=== PATIENT | male | born 1940 | race Caucasian/White ===

== ENCOUNTER 2017-11-04 11:52 | Inpatient (IN) | payer MEDICARE, OTHER ==
[2017-11-04 11:54] VITALS: BMI 28.3
[2017-11-04 13:19] LABS: BASO % 0.4 % (0.0-2.0); EOS # 0.1 K/uL (0.0-0.7); EOS % 2.1 % (0.0-4.0); HEMATOCRIT 43.5 % (35.0-51.0); LYMPH # 1.4 K/uL (1.0-4.3); LYMPH % 20.8 % (20.0-40.0); MEAN CELL VOLUME 88.8 fL (80.0-94.0); MEAN CORPUSCULAR HEMOGLOBIN 29.6 pg (27.0-31.0); MEAN CORPUSCULAR HGB CONC 33.4 g/dL (33.0-37.0); MEAN PLATELET VOLUME 7.3 fL (7.2-11.7); MONO # 0.6 K/uL (0.0-0.8); MONO % 8.8 % (0.0-10.0); RED CELL DISTRIBUTION WIDTH 13.9 % (11.5-14.5); WHITE BLOOD COUNT 6.9 K/uL (4.8-10.8)
[2017-11-04] MEDS ORDERED: Sodium Chloride 0.9% 500 ML IV ONE ×2 (13:19→13:30)
[2017-11-04 13:28] LABS: INR 1.1
[2017-11-04 13:32] LABS: ALKALINE PHOSPHATASE 68 U/L (38-126); ALT/SGPT 39 U/L (21-72); AST/SGOT 34 U/L (17-59); BILIRUBIN,TOTAL 0.6 mg/dL (0.2-1.3); BLOOD UREA NITROGEN 22 mg/dL (9-20); CALCIUM 8.5 mg/dl (8.6-10.4); CARBON DIOXIDE 29 mmol/L (22-30); CHLORIDE 105 mmol/L (98-107); GFR AFRICAN-AMERICAN > 60; GLUCOSE,RANDOM 101 mg/dL (75-110); POTASSIUM 4.9 mmol/L (3.6-5.2); SODIUM 141 mmol/L (132-148)
--- NOTE | 2017-11-04 14:03 | CT ---
PROCEDURE: CT HEAD WITHOUT CONTRAST. HISTORY: syncope COMPARISON: None available. TECHNIQUE: Axial computed tomography images were obtained through the head/brain without intravenous contrast. Radiation dose: Total exam DLP = 884.92 MGy-cm. This CT exam was performed using one or more of the following dose reduction techniques: Automated exposure control, adjustment of the mA and/or kV according to patient size, and/or use of iterative reconstruction technique. FINDINGS: BRAIN: Diffuse atrophy with prominence of the ventricles and sulci noted. No mass effect or edema. Dense intracranial atherosclerosis. Scattered periventricular and subcortical white matter hypodensities, which are nonspecific, but often seen with chronic microvascular ischemic disease. No acute intracranial hemorrhage identified. Minimal postoperative changes at the dura on the left.Please note that MRI with diffusion imaging is more sensitive in the detection of acute ischemic event. VENTRICLES: No hydrocephalus. CALVARIUM: Left parietal craniotomy. PARANASAL SINUSES: Unremarkable as visualized. No significant inflammatory changes. MASTOID AIR CELLS: Unremarkable as visualized. No inflammatory changes. OTHER FINDINGS: None. IMPRESSION: No acute intracranial pathology identified. Additional findings as above.
--- NOTE | 2017-11-04 14:19 | C.PDOC ---
History Of Present Illness 77 y/o male states he felt lightheaded while walking home this morning, had a syncopal episode lasting several seconds that was witnessed by bystander. Patient denies chest pain, SOB, or palpitations prior to the episode. Patient also c/o right lower tooth pain, was evaluated by a dentist for already. He denies headache, visual changes, extremity weakness, sensory changes, facial droop, slurred speech. Time Seen by Provider: 11/04/17 12:38 Chief Complaint (Nursing): Syncope History Per: Patient History/Exam Limitations: no limitations Onset/Duration Of Symptoms: Hrs Activity At Onset Of Symptoms: Walking Associated Symptoms Preceding Syncopal Episode: No Predromal Symptoms (Sudden Onset) Fall Associated With With Symptoms: No Past Medical History Reviewed: Historical Data, Nursing Documentation, Vital Signs Vital Signs: Last Vital Signs Temp 98.0 F 11/07/17 09:36 Pulse 53 L 11/07/17 12:23 Resp 20 11/07/17 09:36 BP 129/78 11/07/17 09:36 Pulse Ox 99 11/07/17 09:36 - Medical History PMH: HTN - [facility] Procedures CLOSED ENDOSCOPIC BIOPSY OF LARGE INTESTINE (06/16/13) Family History: States: No Known Family Hx - Social History Hx Alcohol Use: No Hx Substance Use: No Review Of Systems Except As Marked, All Systems Reviewed And Found Negative. Constitutional: Negative for: Fever, Chills ENT: Positive for: Mouth Pain (dental pain) Cardiovascular: Negative for: Chest Pain Respiratory: Negative for: Cough, Shortness of Breath Gastrointestinal: Negative for: Nausea, Vomiting Skin: Negative for: Rash Neurological: Positive for: Other (syncope). Negative for: Weakness, Numbness Physical Exam - Physical Exam Appears: Well, Non-toxic, No Acute Distress Skin: Normal Color, Warm, Dry Head: Atraumatic, Normacephalic Eye(s): bilateral: Normal Inspection, PERRL, EOMI Oral Mucosa: Moist Teeth: Other (poor dentition) Cardiovascular: Rhythm Regular Respiratory: Normal Breath Sounds, No Rales, No Rhonchi, No Wheezing Gastrointestinal/Abdominal: Normal Exam, Bowel Sounds, Soft, No Tenderness Extremity: Normal ROM Neurological/Psych: Oriented x3, Normal Speech, Normal Cognition ED Course And Treatment - Laboratory Results Result Diagrams: 11/04/17 13:11/04/17 13:08 ECG: Interpreted By Me ECG Rhythm: Sinus Rhythm Interpretation Of ECG: normal axis, occasional PVC's, RBBB, Q waves in II, III, and aVF. No acute ST changes. Rate From EC O2 Sat by Pulse Oximetry: 98 (RA) Pulse Ox Interpretation: Normal Progress Note: Blood work, CT head, EKG ordered and reviewed. 4:00pm- After being admitted, patient now states he no longer wants to stay and wants to go home. Explained to patient that he will need to sign out against my medical advice if he wants to leave. Patient understands that by doing so, he risks worsening of current condition or possibly even . He understands the risk, and has signed out against my medical advice. 4:15PM- Patient now states he wants to stay and have further workup. Will proceed with admission. - Physician Consult Information Physician Contacted: Venkata Brower Outcome Of Conversation: Discussed patient with Dr. Danuta Brower, agrees with telemetry admission for syncope. Disposition - Disposition Disposition: HOSPITALIZED Disposition Time: 14:48 Condition: STABLE - Clinical Impression Clinical Impression: Syncope - Scribe Statement The provider has reviewed the documentation as recorded by the Scribe SM All medical record entries made by the Scribe were at my direction and personally dictated by me. I have reviewed the chart and agree that the record accurately reflects my personal performance of the history, physical exam, medical decision making, and the department course for this patient. I have also personally directed, reviewed, and agree with the discharge instructions and disposition. Decision To Admit - Pt Status Changed To: Hospital Disposition Of: Inpatient - Admit Certification Admit to Inpatient:: After my assessment, the patient will require hospitalization for at least two midnights. This is because of the severity of symptoms shown, intensity of services needed, and/or the medical risk in this patient being treated as an outpatient. - InPatient: Physician Admission Certification: I certify that this patient requires 2 or more midnights of care for the following reason:: see notes - . Bed Request Type: Telemetry Admitting Physician: Venkata Brower Patient Diagnosis: Syncope, Left against medical advice
[2017-11-04 17:22] VITALS: RESP 20
--- NOTE | 2017-11-04 19:49 | CP.PCM.HP ---
Past Patient History - Past Social History Smoking Status: Never Smoked - CARDIAC Hx Hypertension: Yes - PULMONARY Hx Respiratory Disorders: No - NEUROLOGICAL Hx Neurological Disorder: No - HEENT Hx HEENT Problems: No - RENAL Hx Chronic Kidney Disease: No - ENDOCRINE/METABOLIC Hx Endocrine Disorders: No - HEMATOLOGICAL/ONCOLOGICAL Hx Blood Disorders: No - INTEGUMENTARY Hx Dermatological Problems: No - MUSCULOSKELETAL/RHEUMATOLOGICAL Hx Musculoskeletal Disorders: No - GASTROINTESTINAL Hx Gastrointestinal Disorders: No - GENITOURINARY/GYNECOLOGICAL Hx Genitourinary Disorders: No - PSYCHIATRIC Hx Substance Use: No - SURGICAL HISTORY Hx Surgeries: No - ANESTHESIA Hx Anesthesia: No Hx Anesthesia Reactions: No Hx Malignant Hyperthermia: No Has any member of the family had a problem w/ anesthesia?: No Meds Allergies/Adverse Reactions: Allergies Allergy/AdvReac Type Severity Reaction Status Date / Time No Known Allergies Allergy Verified 06/16/13 08:17 Physical Exam - Constitutional Appears: Well - Head Exam Head Exam: ATRAUMATIC, NORMAL INSPECTION, NORMOCEPHALIC - Eye Exam Eye Exam: EOMI, Normal appearance, PERRL Pupil Exam: NORMAL ACCOMODATION, PERRL - ENT Exam ENT Exam: Mucous Membranes Moist, Normal Exam - Neck Exam Neck exam: Positive for: Normal Inspection - Respiratory Exam Respiratory Exam: Decreased Breath Sounds - Cardiovascular Exam Cardiovascular Exam: REGULAR RHYTHM, +S1, +S2 - GI/Abdominal Exam GI & Abdominal Exam: Diminished Bowel Sounds, Soft - Rectal Exam Rectal Exam: Deferred Results - Vital Signs Recent Vital Signs: Last Vital Signs Temp 98.0 F 11/04/17 16:45 Pulse 59 L 11/04/17 16:45 Resp 20 11/04/17 16:45 BP 144/85 11/04/17 16:45 Pulse Ox 99 11/04/17 16:45 - Labs Result Diagrams: 11/04/17 13:08 11/04/17 13:08 Labs: Laboratory Results - last 24 hr 11/04/17 11/04/17 11/04/17 12:45 13:08 13:08 WBC 6.9 RBC 4.90 Hgb 14.5 Hct 43.5 MCV 88.8 MCH 29.6 MCHC 33.4 RDW 13.9 Plt Count 192 MPV 7.3 Neut % (Auto) 67.9 Lymph % (Auto) 20.8 [place] % (Auto) 8.8 Eos % (Auto) 2.1 Baso % (Auto) 0.4 Neut # 4.7 Lymph # 1.4 [place] # 0.6 Eos # 0.1 Baso # 0.0 PT INR APTT Sodium 141 Potassium 4.9 Chloride 105 Carbon Dioxide 29 Anion Gap 11 BUN 22 H Creatinine 1.0 Est GFR ( Amer) > 60 Est GFR (Non-Af Amer) > 60 POC Glucose (mg/dL) 102 Random Glucose 101 Calcium 8.5 L Total Bilirubin 0.6 AST 34 ALT 39 Alkaline Phosphatase 68 Total Creatine Kinase 165 CK-MB (Mass) 1.72 Troponin I < 0.0120 Total Protein 8.0 Albumin 4.0 Globulin 4.0 H Albumin/Globulin Ratio 1.0 11/04/17 13:08 WBC RBC Hgb Hct MCV MCH MCHC RDW Plt Count MPV Neut % (Auto) Lymph % (Auto) [place] % (Auto) Eos % (Auto) Baso % (Auto) Neut # Lymph # [place] # Eos # Baso # PT 12.0 INR 1.1 APTT 30 Sodium Potassium Chloride Carbon Dioxide Anion Gap BUN Creatinine Est GFR ( Amer) Est GFR (Non-Af Amer) POC Glucose (mg/dL) Random Glucose Calcium Total Bilirubin AST ALT Alkaline Phosphatase Total Creatine Kinase CK-MB (Mass) Troponin I Total Protein Albumin Globulin Albumin/Globulin Ratio
--- NOTE | 2017-11-04 21:27 | CP.PCM.CON ---
History of Present Illness - History of Present Illness History of Present Illness: Patient admitted for Syncope Will Check ECHO, Carotids and Trops Past Patient History - Past Social History Smoking Status: Never Smoked - CARDIAC Hx Hypertension: Yes - PULMONARY Hx Respiratory Disorders: No - NEUROLOGICAL Hx Neurological Disorder: No - HEENT Hx HEENT Problems: No - RENAL Hx Chronic Kidney Disease: No - ENDOCRINE/METABOLIC Hx Endocrine Disorders: No - HEMATOLOGICAL/ONCOLOGICAL Hx Blood Disorders: No - INTEGUMENTARY Hx Dermatological Problems: No - MUSCULOSKELETAL/RHEUMATOLOGICAL Hx Musculoskeletal Disorders: No - GASTROINTESTINAL Hx Gastrointestinal Disorders: No - GENITOURINARY/GYNECOLOGICAL Hx Genitourinary Disorders: No - PSYCHIATRIC Hx Substance Use: No - SURGICAL HISTORY Hx Surgeries: No - ANESTHESIA Hx Anesthesia: No Hx Anesthesia Reactions: No Hx Malignant Hyperthermia: No Has any member of the family had a problem w/ anesthesia?: No Meds Allergies/Adverse Reactions: Allergies Allergy/AdvReac Type Severity Reaction Status Date / Time No Known Allergies Allergy Verified 06/16/13 08:17 - Medications Medications: Current Medications Aspirin (Aspirin) 325 mg PO DAILY [facility] Clopidogrel Bisulfate (Plavix) 75 mg PO DAILY [facility] Enoxaparin Sodium (Lovenox) 40 mg SC DAILY [facility] Famotidine (Pepcid) 20 mg PO DAILY [facility] Metoprolol Tartrate (Lopressor) 100 mg PO DAILY [facility] Naproxen (Anaprox Ds) 550 mg PO DAILY [facility] Pneumococcal Polyvalent Vaccine (Pneumovax 23 Vaccine) 0.5 ml IM .ONCE ONE Stop: 11/05/17 10:01 Results - Vital Signs Recent Vital Signs: Last Vital Signs Temp 98.0 F 11/04/17 16:45 Pulse 59 L 11/04/17 16:45 Resp 20 11/04/17 16:45 BP 144/85 11/04/17 16:45 Pulse Ox 99 11/04/17 16:45 - Labs Result Diagrams: 11/04/17 13:08 11/04/17 13:08 Labs: Laboratory Results - last 24 hr 11/04/17 11/04/17 11/04/17 12:45 13:08 13:08 WBC 6.9 RBC 4.90 Hgb 14.5 Hct 43.5 MCV 88.8 MCH 29.6 MCHC 33.4 RDW 13.9 Plt Count 192 MPV 7.3 Neut % (Auto) 67.9 Lymph % (Auto) 20.8 [place] % (Auto) 8.8 Eos % (Auto) 2.1 Baso % (Auto) 0.4 Neut # 4.7 Lymph # 1.4 [place] # 0.6 Eos # 0.1 Baso # 0.0 PT INR APTT Sodium 141 Potassium 4.9 Chloride 105 Carbon Dioxide 29 Anion Gap 11 BUN 22 H Creatinine 1.0 Est GFR ( Amer) > 60 Est GFR (Non-Af Amer) > 60 POC Glucose (mg/dL) 102 Random Glucose 101 Calcium 8.5 L Total Bilirubin 0.6 AST 34 ALT 39 Alkaline Phosphatase 68 Total Creatine Kinase 165 CK-MB (Mass) 1.72 Troponin I < 0.0120 Total Protein 8.0 Albumin 4.0 Globulin 4.0 H Albumin/Globulin Ratio 1.0 11/04/17 11/04/17 13:08 20:41 WBC RBC Hgb Hct MCV MCH MCHC RDW Plt Count MPV Neut % (Auto) Lymph % (Auto) [place] % (Auto) Eos % (Auto) Baso % (Auto) Neut # Lymph # [place] # Eos # Baso # PT 12.0 INR 1.1 APTT 30 Sodium Potassium Chloride Carbon Dioxide Anion Gap BUN Creatinine Est GFR ( Amer) Est GFR (Non-Af Amer) POC Glucose (mg/dL) Random Glucose Calcium Total Bilirubin AST ALT Alkaline Phosphatase Total Creatine Kinase 161 CK-MB (Mass) 1.93 Troponin I < 0.0120 Total Protein Albumin Globulin Albumin/Globulin Ratio
[2017-11-05] MEDS: Naproxen 550 mg Tab PO SCH (09:35)
[2017-11-05] MEDS: Enoxaparin 40 mg Syringe SC SCH (09:36)
[2017-11-05] MEDS ORDERED: Pneumococcal 23-Valent Vaccine IM ONE (10:00)
--- NOTE | 2017-11-05 14:01 | VASCLAB ---
PROCEDURE: HISTORY: Syncope COMPARISON: None available. TECHNIQUE: Grayscale and duplex Doppler evaluation of the cervical carotid and vertebral arteries were performed. The common carotid, carotid bifurcations and cervical Internal Carotid Artery (ICA) and proximal External Carotid Artery (ECA) were evaluated. The vertebral arteries were evaluated for gross patency and flow direction. Report prepared by MIGUEL Rowley FINDINGS: RIGHT CAROTID ARTERIES: 1. Common Carotid Artery: Minimal homogeneous plaque formation of the right common carotid artery. Maximum Peak Systolic velocity: 75 cm/sec: End-diastolic velocity 18 cm/sec. 2. Carotid Bifurcation: plaque formation. Maximum Peak Systolic velocity: 40 cm/sec: End-diastolic velocity 0 cm/sec. 3. Internal Carotid Artery: Plaque description: Homogeneous 3.1. Proximal Segment: Peak systolic velocity 83 cm/sec: End-diastolic velocity 28 cm/sec - % stenosis 0-15% 3.2. Middle Segment: Peak systolic velocity 104 cm/sec: End-diastolic velocity 33 cm/sec - % stenosis 0-15% 3.3. Distal Segment: Peak systolic velocity 85 cm/sec: End-diastolic velocity 22 cm/sec - % stenosis 0-15% 4. External Carotid Artery: No significant focal plaque formation. Peak systolic velocity 68 cm/sec 5. ICA/CCA Ratio: 2.2 LEFT CAROTID ARTERIES: 1. Common Carotid Artery: Minimal homogeneous plaque formation of the left common carotid artery. Maximum Peak Systolic velocity: 65 cm/sec: End-diastolic velocity 16 cm/sec. 2. Carotid Bifurcation: plaque formation. Maximum Peak Systolic velocity: 29 cm/sec: End-diastolic velocity 8 cm/sec. 3. Internal Carotid Artery: Plaque description: Homogeneous 3.1. Proximal Segment: Peak systolic velocity 59 cm/sec: End-diastolic velocity 19 cm/sec - % stenosis 0-15% 3.2. Middle Segment: Peak systolic velocity 46 cm/sec: End-diastolic velocity 16 cm/sec - % stenosis 0-15% 3.3. Distal Segment: Peak systolic velocity 50 cm/sec: End-diastolic velocity 13 cm/sec - % stenosis 0-15% 4. External Carotid Artery: No significant focal plaque formation. Peak systolic velocity 57 cm/sec 5. ICA/CCA Ratio: 1.1 VERTEBRAL ARTERIES: 1. Right Vertebral Artery: The right vertebral artery flow direction is antegrade. 2. Left Vertebral Artery: The left vertebral artery flow direction is antegrade. OTHER FINDINGS: 1. Right Brachial Blood pressure: 120 mmHg. 2. Left Brachial Blood pressure: 115 mmHg. IMPRESSION: RIGHT: Duplex scan does not suggest hemodynamically significant stenosis of the right extracranial carotid arteries. LEFT: Duplex scan does not suggest hemodynamically significant stenosis of the left extracranial carotid arteries.
--- NOTE | 2017-11-05 18:42 | CP.PCM.PN ---
Subjective - Date & Time of Evaluation Date of Evaluation: 11/05/17 Time of Evaluation: 15:00 - Subjective Subjective: clinically same Objective - Vital Signs/Intake and Output Vital Signs (last 24 hours): Temp Pulse Resp BP Pulse Ox 97.7 F 62 20 111/64 96 11/05/17 15:20 11/05/17 15:20 11/05/17 15:20 11/05/17 15:20 11/05/17 15:20 Intake and Output: 11/05/17 11/05/17 06:59 18:59 Intake Total 120 400 Balance 120 400 - Medications Medications: Current Medications Aspirin (Aspirin) 325 mg PO DAILY [facility] Last Admin: 11/05/17 09:35 Dose: 325 mg Clopidogrel Bisulfate (Plavix) 75 mg PO DAILY [facility] Last Admin: 11/05/17 09:35 Dose: 75 mg Enoxaparin Sodium (Lovenox) 40 mg SC DAILY [facility] Last Admin: 11/05/17 09:36 Dose: 40 mg Famotidine (Pepcid) 20 mg PO DAILY [facility] Last Admin: 11/05/17 09:35 Dose: 20 mg Metoprolol Tartrate (Lopressor) 100 mg PO DAILY [facility] Last Admin: 11/05/17 09:35 Dose: 100 mg Naproxen (Anaprox Ds) 550 mg PO DAILY [facility] Last Admin: 11/05/17 09:35 Dose: 550 mg - Labs Labs: 11/04/17 13:08 11/04/17 13:08 PT 12.0 SECONDS (9.7-12.2) 11/04/17 13:08 INR 1.1 11/04/17 13:08 APTT 30 SECONDS (21-34) 11/04/17 13:08 - Constitutional Appears: Well - Head Exam Head Exam: ATRAUMATIC, NORMAL INSPECTION, NORMOCEPHALIC - Eye Exam Eye Exam: EOMI, Normal appearance, PERRL Pupil Exam: NORMAL ACCOMODATION, PERRL - ENT Exam ENT Exam: Mucous Membranes Moist, Normal Exam - Neck Exam Neck Exam: Full ROM, Normal Inspection. absent: Lymphadenopathy - Respiratory Exam Respiratory Exam: Decreased Breath Sounds - Cardiovascular Exam Cardiovascular Exam: REGULAR RHYTHM, +S1, +S2 - GI/Abdominal Exam GI & Abdominal Exam: Soft, Diminished Bowel Sounds - Rectal Exam Rectal Exam: Deferred
--- NOTE | 2017-11-05 23:52 | CON ---
DATE: HISTORY OF PRESENT ILLNESS: This is a 77-year-old male with past medical history of hypertension and patient came to the hospital because he felt lightheaded while walking in the house yesterday and had a syncopal episode for several seconds. No chest pain, no shortness of breath, and also complaining of a right lower throat pain and called to evaluate to the patient. PAST MEDICAL HISTORY: Hypertension. FAMILY HISTORY: None significant. REVIEW OF SYSTEMS: Ten-point review of systems was negative except passing out spell. PHYSICAL EXAMINATION: VITAL SIGNS: Blood pressure 149/75. NEUROLOGIC: Alert, awake, oriented x3. No aphasia. Cranial nerves II through XII were tested. Pupils reactive. EOMs intact. Visual mai full. No facial asymmetry. Tongue midline. Motor examination, moves all the extremities equally. Tone normal. Deep tendon reflexes 1+. Both plantars are downgoing. Sensory appears intact. Cerebellar and gait deferred. LABORATORY DATA: EKG: Normal sinus rhythm. WBC 6.9, hemoglobin 14.5, hematocrit 43.5, platelet 192. Sodium 141, potassium 4.9, chloride 105, CO2 of 29, glucose 101, BUN 22, creatinine 1. IMPRESSION: Syncope and workup in progress. CAT scan of the head was negative. Carotid Doppler ultrasound is pending. Continue present management. We will follow up. Carl Inman MD
[2017-11-06] MEDS: Naproxen 550 mg Tab PO SCH (10:01)
[2017-11-06] MEDS: Enoxaparin 40 mg Syringe SC SCH (10:02)
[2017-11-06] MEDS ORDERED: Iodixanol 320 MG/ML 100 ML BOTTLE IV ONE (16:31)
--- NOTE | 2017-11-06 17:49 | CT ---
PROCEDURE: CT Angiography Chest, Abdomen and Pelvis with and without intravenous contrast HISTORY: POSS DISSECTING AORTA COMPARISON: None. TECHNIQUE: Contiguous axial images of the chest, abdomen and pelvis were obtained in the phase of aortic enhancement. A noncontrast enhanced CT of the chest was also obtained to evaluate for possible intramural thrombus. Coronal and sagittal reformats were generated. IV dose administered: 100 mL Visipaque 320 Radiation dose: Total exam DLP = 1492.64 mGy-cm. This CT exam was performed using one or more of the following dose reduction techniques: Automated exposure control, adjustment of the mA and/or kV according to patient size, and/or use of iterative reconstruction technique. FINDINGS: CT ANGIOGRAPHY OF THE CHEST WITH & WITHOUT CONTRAST: AORTA (CHEST AND ABDOMEN): The thoracic and abdominal aorta are unremarkable, without aneurysm, dissection or rupture. No intramural thrombus identified in the thoracic aorta on the non-contrast ct of the chest. The celiac axis, superior mesenteric artery, inferior mesenteric artery and the renal arteries are widely patent. The pelvic arteries are unremarkable. LUNGS: Clear. No nodule, mass or consolidation. MEDIASTINUM: Unremarkable. Normal caliber aorta and pulmonary arterial trunk. No aortic dissection. Normal size heart. LYMPH NODES: Unremarkable. PLEURA: Unremarkable. No pneumothorax. No pleural fluid. BONES: Thoracolumbar dextroscoliosis. OTHER FINDINGS: None. CT ANGIOGRAPHY OF THE ABDOMEN AND PELVIS WITH CONTRAST: LIVER: Unremarkable. No gross lesion or ductal dilatation. GALLBLADDER AND BILE DUCTS: Unremarkable. PANCREAS: Unremarkable. No gross lesion or ductal dilatation. SPLEEN: Unremarkable. ADRENALS: Unremarkable. No mass. KIDNEYS AND URETERS: Unremarkable. No hydronephrosis. No solid mass. VASCULATURE: Unremarkable. No aortic aneurysm. STOMACH AND BOWEL: Scattered colonic diverticula. No bowel obstruction. APPENDIX: Normal appendix. PERITONEUM: Unremarkable. No free fluid. No free air. LYMPH NODES: Unremarkable. No enlarged lymph nodes. Bones No acute fracture. OTHER FINDINGS: None. IMPRESSION: No evidence of thoracic or abdominal aortic dissection. No evidence of aortic aneurysm. No significant abnormality identified.
--- NOTE | 2017-11-06 19:35 | CP.PCM.PN ---
Subjective - Date & Time of Evaluation Date of Evaluation: 11/06/17 Time of Evaluation: 12:20 - Subjective Subjective: clinically same Objective - Vital Signs/Intake and Output Vital Signs (last 24 hours): Temp Pulse Resp BP Pulse Ox 97.1 F L 58 L 20 150/80 98 11/06/17 15:50 11/06/17 16:05 11/06/17 15:50 11/06/17 15:50 11/06/17 15:50 Intake and Output: 11/06/17 11/07/17 18:59 06:59 Intake Total 700 Balance 700 - Medications Medications: Current Medications Aspirin (Aspirin) 325 mg PO DAILY [facility] Last Admin: 11/06/17 10:02 Dose: 325 mg Clopidogrel Bisulfate (Plavix) 75 mg PO DAILY [facility] Last Admin: 11/06/17 10:02 Dose: 75 mg Enoxaparin Sodium (Lovenox) 40 mg SC DAILY [facility] Last Admin: 11/06/17 10:02 Dose: 40 mg Famotidine (Pepcid) 20 mg PO DAILY [facility] Last Admin: 11/06/17 10:02 Dose: 20 mg Metoprolol Tartrate (Lopressor) 100 mg PO DAILY [facility] Last Admin: 11/06/17 10:02 Dose: 100 mg Naproxen (Anaprox Ds) 550 mg PO DAILY [facility] Last Admin: 11/06/17 10:01 Dose: 550 mg - Labs Labs: 11/04/17 13:08 11/04/17 13:08 PT 12.0 SECONDS (9.7-12.2) 11/04/17 13:08 INR 1.1 11/04/17 13:08 APTT 30 SECONDS (21-34) 11/04/17 13:08 - Constitutional Appears: Well - Head Exam Head Exam: ATRAUMATIC, NORMAL INSPECTION, NORMOCEPHALIC - Eye Exam Eye Exam: EOMI, Normal appearance, PERRL Pupil Exam: NORMAL ACCOMODATION, PERRL - ENT Exam ENT Exam: Mucous Membranes Moist, Normal Exam - Neck Exam Neck Exam: Full ROM, Normal Inspection. absent: Lymphadenopathy - Respiratory Exam Respiratory Exam: Decreased Breath Sounds - Cardiovascular Exam Cardiovascular Exam: REGULAR RHYTHM, +S1, +S2 - GI/Abdominal Exam GI & Abdominal Exam: Soft, Diminished Bowel Sounds - Rectal Exam Rectal Exam: Deferred
--- NOTE | 2017-11-06 20:04 | CP.PCM.PN ---
Subjective - Date & Time of Evaluation Date of Evaluation: 11/06/17 Time of Evaluation: 20:03 - Subjective Subjective: Patient cardiac w/u for syncopy has been negative so far Will continue to monitor Recommend neuro eval Objective - Vital Signs/Intake and Output Vital Signs (last 24 hours): Temp Pulse Resp BP Pulse Ox 97.1 F L 58 L 20 150/80 98 11/06/17 15:50 11/06/17 16:05 11/06/17 15:50 11/06/17 15:50 11/06/17 15:50 Intake and Output: 11/06/17 11/07/17 18:59 06:59 Intake Total 700 Balance 700 - Medications Medications: Current Medications Aspirin (Aspirin) 325 mg PO DAILY [facility] Last Admin: 11/06/17 10:02 Dose: 325 mg Clopidogrel Bisulfate (Plavix) 75 mg PO DAILY [facility] Last Admin: 11/06/17 10:02 Dose: 75 mg Enoxaparin Sodium (Lovenox) 40 mg SC DAILY [facility] Last Admin: 11/06/17 10:02 Dose: 40 mg Famotidine (Pepcid) 20 mg PO DAILY [facility] Last Admin: 11/06/17 10:02 Dose: 20 mg Metoprolol Tartrate (Lopressor) 100 mg PO DAILY [facility] Last Admin: 11/06/17 10:02 Dose: 100 mg Naproxen (Anaprox Ds) 550 mg PO DAILY [facility] Last Admin: 11/06/17 10:01 Dose: 550 mg - Labs Labs: 11/04/17 13:08 11/04/17 13:08 PT 12.0 SECONDS (9.7-12.2) 11/04/17 13:08 INR 1.1 11/04/17 13:08 APTT 30 SECONDS (21-34) 11/04/17 13:08
[2017-11-07] MEDS: Naproxen 550 mg Tab PO SCH (09:19)
[2017-11-07] MEDS: Enoxaparin 40 mg Syringe SC SCH (09:20)
[2017-11-07 09:37] VITALS: BP 129/78; TEMP 98
[2017-11-07 13:15] VITALS: PULSE 53
--- NOTE | 2017-11-07 15:57 | CP.PCM.PN ---
Subjective - Date & Time of Evaluation Date of Evaluation: 11/07/17 Time of Evaluation: 11:20 - Subjective Subjective: clinically same Objective - Vital Signs/Intake and Output Vital Signs (last 24 hours): Temp Pulse Resp BP Pulse Ox 98.0 F 53 L 20 129/78 99 11/07/17 09:36 11/07/17 12:23 11/07/17 09:36 11/07/17 09:36 11/07/17 09:36 Intake and Output: 11/07/17 11/07/17 06:59 18:59 Intake Total 600 Balance 600 - Medications Medications: Current Medications Aspirin (Aspirin) 325 mg PO DAILY [facility] Last Admin: 11/07/17 09:20 Dose: 325 mg Clopidogrel Bisulfate (Plavix) 75 mg PO DAILY [facility] Last Admin: 11/07/17 09:18 Dose: 75 mg Enoxaparin Sodium (Lovenox) 40 mg SC DAILY [facility] Last Admin: 11/07/17 09:20 Dose: 40 mg Famotidine (Pepcid) 20 mg PO DAILY [facility] Last Admin: 11/07/17 09:18 Dose: 20 mg Metoprolol Tartrate (Lopressor) 100 mg PO DAILY [facility] Last Admin: 11/07/17 09:19 Dose: 100 mg Naproxen (Anaprox Ds) 550 mg PO DAILY [facility] Last Admin: 11/07/17 09:19 Dose: 550 mg Tramadol HCl (Ultram) 50 mg PO TID PRN PRN Reason: Pain, severe (8-10) Last Admin: 11/07/17 13:35 Dose: 50 mg - Labs Labs: 11/04/17 13:08 11/04/17 13:08 PT 12.0 SECONDS (9.7-12.2) 11/04/17 13:08 INR 1.1 11/04/17 13:08 APTT 30 SECONDS (21-34) 11/04/17 13:08 - Constitutional Appears: Well - Head Exam Head Exam: ATRAUMATIC, NORMAL INSPECTION, NORMOCEPHALIC - Eye Exam Eye Exam: EOMI, Normal appearance, PERRL Pupil Exam: NORMAL ACCOMODATION, PERRL - ENT Exam ENT Exam: Mucous Membranes Moist, Normal Exam - Neck Exam Neck Exam: Full ROM, Normal Inspection. absent: Lymphadenopathy - Respiratory Exam Respiratory Exam: Decreased Breath Sounds - Cardiovascular Exam Cardiovascular Exam: REGULAR RHYTHM, +S1, +S2 - GI/Abdominal Exam GI & Abdominal Exam: Soft, Diminished Bowel Sounds - Rectal Exam Rectal Exam: Deferred
[2017-11-07 17:50] VITALS: O2SAT 98
--- NOTE | 2017-11-07 17:50 | CP.PCM.PN ---
Subjective - Date & Time of Evaluation Date of Evaluation: 11/07/17 Time of Evaluation: 11:00 Objective - Vital Signs/Intake and Output Vital Signs (last 24 hours): Temp Pulse Resp BP Pulse Ox 98.0 F 53 L 20 129/78 99 11/07/17 09:36 11/07/17 12:23 11/07/17 09:36 11/07/17 09:36 11/07/17 09:36 Intake and Output: 11/07/17 11/07/17 06:59 18:59 Intake Total 600 Balance 600 - Labs Labs: 11/04/17 13:08 11/04/17 13:08 PT 12.0 SECONDS (9.7-12.2) 11/04/17 13:08 INR 1.1 11/04/17 13:08 APTT 30 SECONDS (21-34) 11/04/17 13:08 Assessment and Plan - Assessment and Plan (Free Text) Assessment: Patient is seen and examined with DR Danuta Brower. Alert and orientedx3, no acute distress.
--- NOTE | 2017-11-08 21:32 | CARD ---
APPROVED REPORT EXAM: Two-dimensional and M-mode echocardiogram with Doppler and color Doppler. Other Information Quality : GoodRhythm : INDICATION Syncope RISK FACTORS Hypertension 2D DIMENSIONS IVSd0.8 (0.7-1.1cm)LVDd4.7 (3.9-5.9cm) PWd0.9 (0.7-1.1cm)LVDs2.8 (2.5-4.0cm) FS (%) 39.1 %LVEF (%)69.5 (>50%) M-Mode DIMENSIONS Left Atrium (MM)4.58 (2.5-4.0cm)Aortic Root4.30 (2.2-3.7cm) Aortic Cusp Exc.2.48 (1.5-2.0cm) Mitral Valve MV E Xbfajfrm01.8cm/sMV A Adyneelz02.9cm/sE/A ratio0.7 TDI E/Lateral E'0.0E/Medial E'0.0 Tricuspid Valve TR Peak [id number]/sTR Peak [id number] <Conclusion> Suboptimal study Left ventricle: thickness: normal; size: normal; overall ejection fraction: 70%: diastolic filling pressures: normal Mitral valve: annulus: normal: leaflets: normal: excursion: normal; no significant trans-mitral gradient: mild incompetence: left atrium:normal Aortic valve: leaflets: normal: excursion: normal; no significant trans-aortic gradient: No significant incompetence: aortic root: dilated Right sided Structures: Pulmonary valve: normal; no significant incompetence; Tricuspid valve: normal; no significant incompetence: Intra-cardiac hemodynamics: pulmonary systolic pressures: 36 mmHgl; central venous pressures: normal No pericardial effusion
--- NOTE | 2017-11-09 03:15 | CARD ---
APPROVED REPORT EKG Measurement Heart [id number] <Conclusion> Sinus rhythm with occasional premature ventricular complexes Right bundle branch block Inferior infarct, age undetermined Abnormal ECG
== END 2017-11-07 15:45 | disposition home or self-care (01) | DRG 312 ==
LOC: C.ER 11:52 → C.9E 14:48 → C.6T 15:56
PROVIDERS: ADMIT Internal Medicine Nephrology; ATTEND Internal Medicine Nephrology
DX: R55 Syncope and collapse (principal); I10 Essential (primary) hypertension